=== PATIENT | male | born 1975 | race African-American/Black ===

== ENCOUNTER 2016-10-27 19:57 | Emergency (ER) | payer MEDICARE, MEDICAID ==
[~2016-10-27] VITALS: Ht 182.9 cm; Wt 72.2 kg
[~2016-10-27 19:57] MED LIST: AMLODIPINE BESY10 MG PO; AMOXICILLIN500 MG PO; BAYER ASPIRIN E81 MG PO; BAYER LOW81 MG OR; BENZTROPINE1 MG OR; BENZTROPINE1 MG PO; CIPROFLOXACN500 MG PO; CLONAZEP ODT0.5 MG OR; CLONAZEPAM1 M1 PO; CLONAZEPAM1 MG OR; COGENTIN1 M2 OR; COGENTIN1 MG OR; FEOSOL45 MG OR; FERROUS SULF325 M3 PO; HALDOL1 M1 PO; HALDOL1 MG PO; HALDOL5 M1 PO; HALDOL5 MG OR; HALDOL5 MG PO; HALOPERIDOL2 MG OR; LAMICTAL150 M1 OR; LAMICTAL150 MG OR; LAMICTAL150 MG PO; LAMICTAL200 M1 OR; LAMOTRIGINE150 MG OR; LISINOPRIL20 M1 PO; LISINOPRIL20 MG OR; LISINOPRIL20 MG PO; LORTAB 5 OR; LORTAB 5-325 MG1 TAB PO; MEDDOSEPAK OR; MOTRIN800 MG PO; NAPROSYN500 MG PO; NORVASC10 M1 OR; NORVASC10 MG OR; OMEPRAZOLE20 M2 PO; RISPERDAL0.5 MG PO; SEROQUEL XR150 MG PO; SEROQUEL50 MG OR; ULTRAM50 M1 PO; ZOFRAN4 MG/TAB PO; ZONEGRAN100 M1 PO; ZONISAMIDE100 MG OR
[2016-10-27] MEDS ORDERED: MAGNESIUM OXID400 M1 PO (20:06)
[2016-10-27] MEDS ORDERED: LEVETIRACETAM500 MG PO (20:08)
[2016-10-27] MEDS ORDERED: METOPROL TAR25 MG PO (20:09)
[2016-10-27] MEDS ORDERED: VITAMIN D50000 UNIT PO (20:10)
[2016-10-27 20:53] LABS: HEMATOCRIT 43.6 % (39.0-50.0); IMMATURE GRANULOCYTES 0.3 % (0.0-1.0); MEAN CELL VOLUME 89.9 fL CALC (80.0-100.0); MEAN CORPUSCULAR HGB 28.9 pG CALC (26.0-32.0); MEAN CORPUSCULAR HGB CONC 32.1 g/L CALC (32.0-36.0); NEUT# 5.39 thou/uL (1.82-7.42); RED BLOOD COUNT 4.85 mill/uL (4.70-6.10)
[2016-10-27 21:12] LABS: ALBUMIN 4.7 g/dL (3.2-5.0); ALKALINE PHOSPHATASE 67 u/l (38-126); ANION GAP 21 (6-22 (CALC)); BILIRUBIN, TOTAL 0.4 mg/dL (0.0-1.4); BUN 15 mg/dL (9-20); BUN/CREATININE RATIO 14 (12-20 (CALC)); CALCIUM 9.9 mg/dL (8.4-10.2); CARBON DIOXIDE 23 mmol/l (22-30); CHLORIDE 103 mmol/l (95-108); CREATININE 1.1 mg/dL (0.7-1.3); GFR > 60 ML/MIN (>=60 (CALC)); GFR FOR AFR.AMER. > 60 ML/MIN (>=60 (CALC)); GLUCOSE 116 mg/dL (75-110); POTASSIUM 4.3 mmol/l (3.5-5.1); SGOT/AST 27 u/l (17-59); SGPT/ALT 24 u/l (21-72); SODIUM 142 mmol/l (137-146); TOTAL PROTEIN 8.1 g/dL (6.3-8.2)
[2016-10-27 21:16] LABS: URINE BILIRUBIN - DIPSTICK NEGATIVE (NEGATIVE); URINE BLOOD DIPSTICK NEGATIVE (NEGATIVE); URINE CLARITY CLEAR; URINE COLOR YELLOW; URINE GLUCOSE - DIPSTICK NEGATIVE (NEGATIVE); URINE KETONE NEGATIVE (NEGATIVE); URINE LEUK ESTERASE NEGATIVE (NEGATIVE); URINE NITRITE - DIPSTICK NEGATIVE (Negative); URINE PH 5.5 (4.5-8.0); URINE PROTEIN - DIPSTICK NEGATIVE (NEG-TRACE); URINE UROBILINOGEN - DIPSTICK 0.2 E.U./dL (0.2)
[2016-10-27] MEDS ORDERED: VIMPAT200 MG PO (21:32)
[2016-10-27 21:56] VITALS: BP 136/87
== END 2016-10-27 21:54 | disposition home or self-care (01) ==
LOC: ED 19:57
PROVIDERS: Emergency Medicine
DX: G40.909 Epilepsy, unspecified, not intractable, without status epilepticus (principal); I10 Essential (primary) hypertension; F31.9 Bipolar disorder, unspecified; H91.90 Unspecified hearing loss, unspecified ear

== ENCOUNTER 2016-10-29 16:18 | Emergency (ER) | payer MEDICARE, MEDICAID ==
[~2016-10-29] VITALS: Ht 182.9 cm; Wt 75.0 kg
[~2016-10-29 16:18] MED LIST changes: +LEVETIRACETAM500 MG PO; +MAGNESIUM OXID400 M1 PO; +METOPROL TAR25 MG PO; +VIMPAT200 MG PO; +VITAMIN D50000 UNIT PO
[2016-10-29 16:49] LABS: HEMATOCRIT 44.4 % (39.0-50.0); HEMOGLOBIN 14.6 g/dl (14.0-18.0); IMMATURE GRANULOCYTES 0.3 % (0.0-1.0); MEAN CELL VOLUME 89.3 fL CALC (80.0-100.0); MEAN CORPUSCULAR HGB 29.4 pG CALC (26.0-32.0); MEAN CORPUSCULAR HGB CONC 32.9 g/L CALC (32.0-36.0); NEUT# 6.4 thou/uL (1.82-7.42); RED BLOOD COUNT 4.97 mill/uL (4.70-6.10)
[2016-10-29 17:00] LABS: ALBUMIN 4.6 g/dL (3.2-5.0); ALKALINE PHOSPHATASE 75 u/l (38-126); ANION GAP 18 (6-22 (CALC)); BILIRUBIN, TOTAL 0.7 mg/dL (0.0-1.4); BUN 16 mg/dL (9-20); BUN/CREATININE RATIO 13 (12-20 (CALC)); CALCIUM 9.4 mg/dL (8.4-10.2); CARBON DIOXIDE 23 mmol/l (22-30); CHLORIDE 107 mmol/l (95-108); CREATININE 1.2 mg/dL (0.7-1.3); GFR > 60 ML/MIN (>=60 (CALC)); GFR FOR AFR.AMER. > 60 ML/MIN (>=60 (CALC)); GLUCOSE 110 mg/dL (75-110); MAGNESIUM 2.1 mg/dL (1.6-2.3); POTASSIUM 3.6 mmol/l (3.5-5.1); SGOT/AST 22 u/l (17-59); SGPT/ALT 27 u/l (21-72); SODIUM 145 mmol/l (137-146); TOTAL PROTEIN 8.2 g/dL (6.3-8.2)
[2016-10-29] MEDS ORDERED: DILANTIN100 MG PO (17:36)
[2016-10-29 19:10] VITALS: BP 120/63
== END 2016-10-29 19:25 | disposition home or self-care (01) ==
LOC: ED 16:18
PROVIDERS: Emergency Medicine
DX: G40.909 Epilepsy, unspecified, not intractable, without status epilepticus (principal); F31.9 Bipolar disorder, unspecified; I10 Essential (primary) hypertension; H91.90 Unspecified hearing loss, unspecified ear; S80.211A Abrasion, right knee, initial encounter; X58.XXXA Exposure to other specified factors, initial encounter; Z91.14 Patient's other noncompliance with medication regimen; Z79.899 Other long term (current) drug therapy

== ENCOUNTER 2017-05-09 15:53 | Emergency (ER) | payer MEDICARE, MEDICAID ==
[~2017-05-09] VITALS: Ht 182.9 cm; Wt 90.0 kg
[~2017-05-09 15:53] MED LIST changes: +DILANTIN100 MG PO
[2017-05-09 17:01] LABS: HEMATOCRIT 45.9 % (39.0-50.0); HEMOGLOBIN 14.7 g/dl (14.0-18.0); IMMATURE GRANULOCYTES 0.8 % (0.0-1.0); MEAN CELL VOLUME 87.3 fL CALC (80.0-100.0); MEAN CORPUSCULAR HGB 27.9 pG CALC (26.0-32.0); NEUT# 6.08 thou/uL (1.82-7.42); RED BLOOD COUNT 5.26 mill/uL (4.70-6.10); RED CELL DISTRI WIDTH 14.8 % (11.5-15.5)
[2017-05-09 17:19] LABS: ALBUMIN 4.3 g/dL (3.2-5.0); ALKALINE PHOSPHATASE 77 u/l (38-126); ANION GAP 20 (6-22 (CALC)); BILIRUBIN, TOTAL 0.4 mg/dL (0.0-1.4); BUN 24 mg/dL (9-20); BUN/CREATININE RATIO 20 (12-20 (CALC)); CALCIUM 9.5 mg/dL (8.4-10.2); CARBON DIOXIDE 26 mmol/l (22-30); CHLORIDE 106 mmol/l (95-108); CREATININE 1.2 mg/dL (0.7-1.3); GFR > 60 ML/MIN (>=60 (CALC)); GFR FOR AFR.AMER. > 60 ML/MIN (>=60 (CALC)); GLUCOSE 140 mg/dL (75-110); POTASSIUM 3.1 mmol/l (3.5-5.1); SGOT/AST 21 u/l (17-59); SGPT/ALT 25 u/l (21-72); SODIUM 148 mmol/l (137-146)
[2017-05-09 17:53] VITALS: BP 140/86
== END 2017-05-09 18:00 | disposition home or self-care (01) ==
LOC: ED 15:53
PROVIDERS: Emergency Medicine
DX: G40.909 Epilepsy, unspecified, not intractable, without status epilepticus (principal); E87.6 Hypokalemia; I10 Essential (primary) hypertension

== ENCOUNTER 2017-06-19 15:27 | Emergency (ER) | payer MEDICARE ==
[~2017-06-19] VITALS: Ht 182.9 cm; Wt 83.0 kg
[2017-06-19 16:01] LABS: HEMATOCRIT 33.2 % (39.0-50.0); HEMOGLOBIN 10.5 g/dl (14.0-18.0); IMMATURE GRANULOCYTES 0.5 % (0.0-1.0); MEAN CORPUSCULAR HGB 28.5 pG CALC (26.0-32.0); MEAN CORPUSCULAR HGB CONC 31.6 g/L CALC (32.0-36.0); NEUT# 8.1 thou/uL (1.82-7.42); RED BLOOD COUNT 3.69 mill/uL (4.70-6.10); RED CELL DISTRI WIDTH 15.1 % (11.5-15.5)
[2017-06-19 16:22] LABS: ALBUMIN 3.5 g/dL (3.2-5.0); BILIRUBIN, TOTAL 0.2 mg/dL (0.0-1.4); CALCIUM 9.2 mg/dL (8.4-10.2); CREATININE 1.6 mg/dL (0.7-1.3); POTASSIUM 3.2 mmol/l (3.5-5.1)
[2017-06-19 16:45] VITALS: BP 131/83
== END 2017-06-19 16:55 | disposition home or self-care (01) ==
LOC: ED 15:27
PROVIDERS: Emergency Medicine
DX: G40.909 Epilepsy, unspecified, not intractable, without status epilepticus (principal); I11.9 Hypertensive heart disease without heart failure; F31.9 Bipolar disorder, unspecified; H91.90 Unspecified hearing loss, unspecified ear; E87.6 Hypokalemia

== ENCOUNTER 2017-08-22 03:36 | Inpatient (IN) | payer MEDICARE ==
[2017-08-22] VITALS (7 sets, daily range): BP systolic 126–150; BP diastolic 78–98
[~2017-08-22] VITALS: Ht 182.9 cm; Wt 82.0 kg
--- NOTE | 2017-08-22 03:40 | NUR ---
RECEIVED ATIVAN 4MG BY EMS.
--- NOTE | 2017-08-22 03:40 | NUR ---
RECEIVED VIA EMS, REPORTED SEIZURE AT HOME. REFC
[2017-08-22] MEDS ORDERED: DEPAKOTE500 MG PO (03:47)
[2017-08-22] MEDS ORDERED: SERTRALINE50 MG PO (03:48)
[2017-08-22] MEDS ORDERED: REMERON15 MG PO (03:49)
[2017-08-22] MEDS ORDERED: BENZTROPINE0.5 MG PO ×2 (03:50→11:07)
[2017-08-22] MEDS ORDERED: OMEPRAZOLE10 MG PO (03:50)
[2017-08-22] MEDS ORDERED: DILANTIN100 MG PO (03:51)
--- NOTE | 2017-08-22 04:30 | NUR ---
PT OPENS EYES TO NAME, FOLLOWS COMMANDS. NON VERBAL AT THIS TIME. MAEX4
--- NOTE | 2017-08-22 05:03 | NUR ---
PORT XRAY AT BEDSIDE.
[2017-08-22 05:10] LABS: HEMATOCRIT 35.3 % (39.0-50.0); HEMOGLOBIN 10.6 g/dl (14.0-18.0); IMMATURE GRANULOCYTES 4.9 % (0.0-1.0); MEAN CELL VOLUME 86.1 fL CALC (80.0-100.0); MEAN CORPUSCULAR HGB 25.9 pG CALC (26.0-32.0); NEUT# 15.82 thou/uL (1.82-7.42); RED BLOOD COUNT 4.1 mill/uL (4.70-6.10); RED CELL DISTRI WIDTH 14.1 % (11.5-15.5)
[2017-08-22 05:38] LABS: URINE BILIRUBIN - DIPSTICK NEGATIVE (NEGATIVE); URINE BLOOD DIPSTICK MODERATE (NEGATIVE); URINE COLOR YELLOW; URINE GLUCOSE - DIPSTICK NEGATIVE (NEGATIVE); URINE KETONE NEGATIVE (NEGATIVE); URINE LEUK ESTERASE NEGATIVE (NEGATIVE); URINE NITRITE - DIPSTICK NEGATIVE (Negative); URINE PROTEIN - DIPSTICK 30 mg/dL (NEG-TRACE); URINE SPECIFIC GRAVITY >=1.030; URINE UROBILINOGEN - DIPSTICK 0.2 E.U./dL (0.2)
[2017-08-22 05:40] LABS: URINE CLARITY HAZY
[2017-08-22 05:42] LABS: BARBITURATES NEGATIVE (NEGATIVE); COCAINE NEGATIVE (NEGATIVE); METHADONE NEGATIVE (NEGATIVE); OXCYCODONE NEGATIVE (NEGATIVE); TETRAHYDROCANNABIONOL NEGATIVE (NEGATIVE); TRICYLIC ANTIDEPRESSANTS NEGATIVE (NEGATIVE)
[2017-08-22 05:55] LABS: ALKALINE PHOSPHATASE 94 u/l (38-126); BILIRUBIN, TOTAL 0.2 mg/dL (0.0-1.4); BUN 14 mg/dL (9-20); BUN/CREATININE RATIO 10 (12-20 (CALC)); CARBON DIOXIDE 18 mmol/l (22-30); CHLORIDE 112 mmol/l (95-108); CREATININE 1.4 mg/dL (0.7-1.3); GFR 56 ML/MIN (>=60 (CALC)); GFR FOR AFR.AMER. > 60 ML/MIN (>=60 (CALC)); SGPT/ALT 50 u/l (21-72); SODIUM 150 mmol/l (137-146)
[2017-08-22 06:00] LABS: ALBUMIN 4.3 g/dL (3.2-5.0); ANION GAP 24 (6-22 (CALC)); POTASSIUM 4.2 mmol/l (3.5-5.1); SGOT/AST 57 u/l (17-59); TOTAL PROTEIN 7.5 g/dL (6.3-8.2)
[2017-08-22 06:04] LABS: URINE RBC 0-2 RBC/hpf (0-5); URINE SQUAMOUS EPITHELIAL CELL FEW EPI/hpf (0-FEW); URINE WBC 0-2 WBC/hpf (0-5)
[2017-08-22 06:05] LABS: URINE BACTERIA RARE hpf; URINE FINE GRAN CAST FEW lpf; URINE MUCUS FEW hpf (NONE-FEW)
--- NOTE | 2017-08-22 06:20 | NUR ---
REPORT TO [facility]/SURG.
[2017-08-22 06:25] LABS: INFLUENZA A POSITIVE (NONE DETECT); INFLUENZA B POSITIVE (NONE DETECT)
--- NOTE | 2017-08-22 06:59 | NUR ---
REPORT TO HARMAN SOLIMAN.
--- NOTE | 2017-08-22 07:09 | NUR ---
PT SOMNOLENT, MOTHER AT BEDSIDE, PT ON BEDSIDE MONITORING WITH O2 NC 2 LPM. RESP EVEN AND UNLABORED. ST ON MONIOR. MONITORING BP FOR IMPROVEMENT PRIOR TO ADMIT TO [facility] FLOOR. WILL CONTINUE TO MONITOR.
--- NOTE | 2017-08-22 08:00 | NUR ---
PT SOMNOLENT BU TAWAKENS TO VOICE AND FOLLOWS COMMANDS, WILL CONT TO MONITOR
--- NOTE | 2017-08-22 08:30 | NUR ---
REPORT TO LESLEE SOLIMAN ON FLOOR FOR ADMIT
--- NOTE | 2017-08-22 08:30 | NUR ---
Admission Note Report Given to: LESLEE SOLIMAN Transported by: Wheelchair X Stretcher Transported with: X Nurse Transporter X Patent IV X O2 X Chocolate Molder
--- NOTE | 2017-08-22 08:35 | NUR ---
FROM ER VIA STRETCHER ACCOMPANIED BY HARMAN Pope TRANSFERRED TO BED WITH MAX ASSIST. RESPS FAST AND SHALLOW ON O2 VIA NC, TELE MONITOR IN PLACE. NON VERBAL, EYES OPEN TO PAINFUL STIMULI. #22 LH INFUSING WITHOUT DIFFICULTY, SITE APPEARS HEALTHY. INCONTINENT OF LARGE AMOUNTS OF URINE, LEO CARE PROVIDED. ORIENTED TO ROOM AND CALL SYSTEM. SAFETY PRECAUTIONS REINFORCED. BED ALARM ON FOR SAFETY. BED IN LOWEST POSITION WITH WHEELS LOCKED. CALL LIGHT WITHIN REACH. WILL CONTINUE TO MONITOR.
--- NOTE | 2017-08-22 08:43 | NUR ---
Admission Note Report Given to: LESLEE SOLIMAN Transported by: Wheelchair X Stretcher Transported with: X Nurse Transporter X Patent IV X O2 X Court Bailiff
[2017-08-22 09:46] LABS: CHOLESTEROL HDL RATIO 3.3 (<4.4 (CALC))
[2017-08-22 09:56] LABS: MAGNESIUM 2.7 mg/dL (1.6-2.3)
--- NOTE | 2017-08-22 10:00 | NUR ---
DR MCCLENDON IN WITH PT, NEW ORDERS RECEIVED.
[2017-08-22] MEDS ORDERED: KLONOPIN0.5 MG PO (11:08)
[2017-08-22] MEDS ORDERED: INVEGA SUST156 MG/ML IM (11:11)
--- NOTE | 2017-08-22 16:02 | NUR ---
RESTING IN SEMI FOWLERS WITH EYES CLOSED, AWAKENS WITH VERBAL STIMULI. MOTHER AT BEDSIDE. RESPS EVEN AND UNLABORED ON O2 VIA NC, TELE MONITOR IN PLACE. NO APPARENT DISTRESS NOTED. BED ALARM ON FOR SAFETY. CALL LIGHT WITHIN REACH. WILL CONTINUE TO MONITOR.
[2017-08-22] MEDS ORDERED: BENZTROPINE1 MG PO (18:25)
[2017-08-22] MEDS ORDERED: SEROQUEL100 MG PO (18:27)
[2017-08-22 19:38] LABS: ANION GAP 26 (6-22 (CALC)); BUN 14 mg/dL (9-20); BUN/CREATININE RATIO 10 (12-20 (CALC)); CARBON DIOXIDE 16 mmol/l (22-30); CHLORIDE 112 mmol/l (95-108); CREATININE 1.4 mg/dL (0.7-1.3); GFR 56 ML/MIN (>=60 (CALC)); GFR FOR AFR.AMER. > 60 ML/MIN (>=60 (CALC)); POTASSIUM 4.1 mmol/l (3.5-5.1); SODIUM 150 mmol/l (137-146)
--- NOTE | 2017-08-23 02:30 | NUR ---
PT.OFF THE FLOOR TO RADIOLOGY FOR CT SCAN, PT.TOLERATED MOVING TO STRETCHER WELL, HE MOVED HIMSELF FROM BED TO STRETCHER VERY WEAKLY AND SLOWLY, HE WAS ABLE TO FOLLOW OUR COMMANDS, PT.IS STILL NON-VERBAL, SHAKES HIS HEAD YES AND NO FOR ANSWERS OTHERWISE, NO RESPONSE GIVEN FROM PATIENT. PT.WAS CLEANED OF INCONTINENCE OF URINE PRIOR TO LEAVING FLOOR.
[2017-08-23 04:40] VITALS: BP 153/95
[2017-08-23 05:33] LABS: IMMATURE GRANULOCYTES 0.8 % (0.0-1.0); MEAN CELL VOLUME 83.3 fL CALC (80.0-100.0); MEAN CORPUSCULAR HGB 25.5 pG CALC (26.0-32.0); MEAN CORPUSCULAR HGB CONC 30.6 g/L CALC (32.0-36.0); NEUT# 9.65 thou/uL (1.82-7.42); RED BLOOD COUNT 4.32 mill/uL (4.70-6.10)
--- NOTE | 2017-08-23 05:35 | NUR ---
PT.CLEANED OF INCONTINENT URINE, LEO-CARE PREVIDED AND BEDDING CHANGED ALONG W/GOWN. PT.NON-VERBAL THROUGHOUT, BUT FOLLOWED COMMANDS. NO S/S OF DISTRESS OR PAIN, BED ALARM ON AND CALL LIGHT AT SIDE
[2017-08-23 05:43] LABS: ANION GAP 17 (6-22 (CALC)); BUN 6 mg/dL (9-20); BUN/CREATININE RATIO 7 (12-20 (CALC)); CARBON DIOXIDE 23 mmol/l (22-30); CHLORIDE 107 mmol/l (95-108); CREATININE 0.9 mg/dL (0.7-1.3); GFR > 60 ML/MIN (>=60 (CALC)); GFR FOR AFR.AMER. > 60 ML/MIN (>=60 (CALC)); MAGNESIUM 2.2 mg/dL (1.6-2.3); POTASSIUM 3.7 mmol/l (3.5-5.1); SODIUM 143 mmol/l (137-146)
--- NOTE | 2017-08-23 05:50 | NUR ---
IV ACCESS DISLODGED, NEW IV IS BEING ACCESSED AT THIS TIME BY JANNY MARIE
--- NOTE | 2017-08-23 07:30 | NUR ---
BEDSIDE REPORT RECEIVED FROM JANNY ACUÑA. PT SUPINE IN BED. NONVERBAL. FOLLOWING DIRECTIONS WELL. NO IVS AT THIS TIME. ARIANNE STATES STORES CLERK TRIED MANY ATTEMPTS. JANNY KIRBY IN ED NOTIFIED AND WILL ATTEMPT.
--- NOTE | 2017-08-23 08:18 | NUR ---
JANNY MIKE AT BEDSIDE FOR IVS ATTEMPT.
[2017-08-23 08:49] VITALS: BP 170/108
[2017-08-23 11:59] VITALS: BP 152/106
--- NOTE | 2017-08-23 12:15 | NUR ---
#20 INSERTED IN LEFT FOOT BY JANNY MIKE. ROCEPHIN RESUMED.
[2017-08-23 15:00] VITALS: BP 144/92
--- NOTE | 2017-08-23 16:44 | NUR ---
PT RESTING WITH EYES CLOSED. MOTHER CAME IN TO VISIT. PT DID NOT SPEAK/ RESPOND TO HER QUESTIONING.
--- NOTE | 2017-08-23 19:18 | NUR ---
PT.IS IN HIGH FOWLERS POSITION WATCHING TV W/LIGHTS LOW. I SPOKE TO PT AND ASKED HOW HE WAS FEELING, HE REPLIED W/GARBLED SPEECH "ALRIGHT." I TOLD HIM THAT I WOULD BE HERE ALL NIGHT AND SHOWED HIM THE CALL LIGHT AND TOLD HIM HOW TO CALL IF HE NEEDED ME. I ASKED IF HE NEEDED ANYTHING ELSE RIGHT NOW, HE SHOOK HIS HEAD NO.
[2017-08-23 19:32] VITALS: BP 154/95
--- NOTE | 2017-08-23 20:49 | NUR ---
UPON ENTERING ROOM PT.IS UPRIGHT IN BED W/LIGHTS ON WATCHING BASKETBALL GAME ON TV. PT.MADE EYE CONTACT W/ME, WHEN ASKED IF HE WAS FEELING OK HE SHOOK HIS HEAD YES, I ASKED IF HE WAS HAVING ANY COUGH HE SHOOK HIS HEAD YES, WHEN ASKED NAME HE SPOKE HIS NAME, UPON ASKING FOR HE SPOKE HIS CORRECT . I STARTED SCANNING MEDICATIONS, FIRST ATTEMPTING TO ASSIST PT.IN TAKING HIS VALPROIC ACID, PT.WOULD NOT USE HIS HAND, UPON ASSESSING MEDIA RECONCILIATION SPECIALIST/THEY WERE FOUND TO BE EQUAL.I OFFERED TO HELP PT.WITH THE PILLS, HE PROCEEDED TO CLOSE HIS EYES AND WOULD NOT RESPOND IN ANY WAY. I WAS UNABLE TO GET PT.TO RESOND IN ANY WAY REGARDING MEDICATIONS, HE WOULD NOT TAKE. I LISTENED TO PT.LUNG SOUNDS AND ATTEMPTED TO ASSESS, HE WAS UNCOOPERATIVE AND WOULD NOT RESPOND TO ME IN ANY WAY. LUNG SOUNDS ARE CLEAR. UPON EXITING ROOM, PT.MADE A SOUND, I TURNED AROUND AND PT.WAS LOOKING AT ME AND PROCEEDED TO REACH FOR HIS WATER. HE PROCEEDED TO TAKE HIS PILLS ONE BY ONE W/WATER IN BETWEEN.
--- NOTE | 2017-08-23 21:04 | NUR ---
PT.WAS ABLE TO TAKE ALL MEDICATIONS ORDERED ONE BY ONE, I ASKED IF HE WOULD LIKE SOME PUDDING, HE SHOOK HIS HEAD YES, I ASKED IF HE WOULD LIKE CHOCOLATE, VANILLA, HE RESPONDED SPOKE "VANILLA."
[2017-08-24] VITALS (8 sets, daily range): BP systolic 128–180; BP diastolic 75–102
--- NOTE | 2017-08-24 00:30 | NUR ---
PT.IV FLUSHED FOR MAINTENANCE, V/S ASSESSED, PT.RETURNED TO SLEEP IMMEIDATELY UPON US LEAVING ROOM, LIGHTS ARE OUT, CALL LIGHT AT SIDE AND TV ON. NO S/S OF DISTRESS NOTED.
--- NOTE | 2017-08-24 03:30 | NUR ---
PT.IS UP ON SIDE OF BED WANTING TO GET UP. WE ASSISTED PT.TO RESTROOM, HE FLUSHED THE TOILET BUT REPORTS HAVING A BM, NOT VISUALIZED BY AIDE. PT.SITTING UPRIGHT IN RECLINER WATCHING CARTOONS ON TV. CALL LIGHT PROVIDED AND INSTRUCTED AGAIN HOW TO CALL IF HE WANTS TO AMBULATE OR NEEDS ANYTHING. ALARM PLACED ON PT.
--- NOTE | 2017-08-24 06:01 | NUR ---
ANTIBIOTIC THERAPY ADMINISTERED. PT.UPRIGHT IN RECLINER WATCHING TV, BED ALARM ON PT.
--- NOTE | 2017-08-24 06:45 | NUR ---
I WAS IN ANOTHER ROOM, ALARM SOUNDED, A NURSE AND BANKING SERVICES CLERK ARRIVED TO ROOM TO FIND PT.LEANING FORWARD IN RECLINER AND FALLING FORWARD. THEY REPORTED CATCHING PT.JUST HE WAS LOWERING TO THE FLOOR. IT WAS ALSO REPORTED THAT HIS HEAD DID BUMP THE FLOOR WHEN HE FELL. WE WERE ABLE TO GET HIM UP AND ASSIST HIM TO THE BED TO LAY DOWN. BED ALARM TURNED ON. WHEN ASKED IF HIS HEAD HURTS BAD HE SHOOK HIS HEAD NO, WHEN ASKED DOES HIS HEAD HURT A LITTLE HE SHOOK HIS HEAD YES. PT.WAS GIVEN CALL LIGHT AND REORIENTED TO ITS USAGE AND CALLING FOR HELP BEFORE GETTING UP. WILL BE NOTIFIED.
--- NOTE | 2017-08-24 07:15 | NUR ---
DR. DAVID WAS NOTIFIED OF PT.FALL, A CT OF HEAD WAS ORDERED.
--- NOTE | 2017-08-24 07:39 | NUR ---
BEDSIDE REPORT RECEIVED FROM JANNY ACUÑA. PT SUPINE IN BED. EYES CLOSED. NOT RESPONDING TO QUESTIONING. BED ALARM SET ON BED FOR SAFETY.
--- NOTE | 2017-08-24 09:30 | NUR ---
PT LEFT FLOOR VIA STRETCHER ACCOMPANIED BY ANH ZUNIGA TO CT DEPARTMENT FOR ORDERED CT BRAIN. PT AWAKE, ANSWERING OPEN-ENDED QUESTIONS AT THIS TIME. NODDING/SHAKING HEAD FOR YES/NO QUESTIONS. PT DENIES HEADACHE. REPORTS NAUSEA.
--- NOTE | 2017-08-24 09:45 | NUR ---
PT ARRIVED TO FLOOR VIA STRETCHER, TRANSFERED BACK TO BED BY SCOOTING OVER FROM STRETCHER. PT FOLLOWING COMMANDS. NOT SPEAKING, BUT MAKING EYE CONTACT AND USING HEAD GESTURES FOR COMMUNICATION. BED ALARM SET FOR SAFETY. WILL CONTINUE TO MONITOR.
--- NOTE | 2017-08-24 14:16 | NUR ---
PT SITTING UPRIGHT IN BED. MAKES EYE CONTACT WITH STAFF. ANSWERING QUESTIONS. SPEECH SLOW BUT APPROPRAITE. DENIES PAIN. REPORTING OF CONCERNS ENCOURAGED. BED ALARM SET FOR SAFETY.
--- NOTE | 2017-08-24 17:00 | NUR ---
PT REQUEST TO SIT IN CHAIR AT BEDSIDE. ASSISTED BY LETTER CARRIER TO CHAIR. PT STARTS TO LEAN FORWARD IF ASLEEP. WHEN QUESTIONED, PT CONFIRMS DIZZINESS. VSS. BP 141/91. LETTER CARRIER AT BEDSIDE FOR SAFETY, UNTIL PT SAFELY IN BED.
--- NOTE | 2017-08-24 18:07 | NUR ---
PT SITTING UPRIGHT IN BED. EATING DINNER. ANSWERING QUESTIONS APPROPRIATELY. CALL LIGHT WITHIN REACH. BED ALARM SET FOR SAFETY. FALL PRECAUTIONS REINFORCED. PT STATES "YES MA'AM."
--- NOTE | 2017-08-24 19:48 | NUR ---
[birth year]24- PT. FOUND ON FLOOR ON RIGHT SIDE. HEAD OFF OF FLOOR. STATES HIS HEAD DID NOT HIT FLOOR. STATES HE NEEDED TO URINATE. ASSISTED BACK TO BED BY STAFF. VSS. URINAL PROVIDED, PT REFUSED TO USE. DR. PERES NOTIFIED. NO NEW ORDERS AT THIS TIME. NO INJURY NOTED. PT DENIES PAIN. BED ALARM SET FOR SAFETY. MOTHER ARRIVED AND AT BEDSIDE NOW. 1939- BED ALARM SET OFF. PT UPPER BODY HANGING OFF OF BED. GRIPPING BOTTOM OF BED TO PREVENT MOTHER FROM ASSISTING BACK INTO BED. STAFF ASKED PT TO LET GO OF BED. PT. THEN GRABBED WRITERS LEG. PT ASKED TO LET GO, PT LET GO AND WAS ASSISTED BACK INTO SITTING POSITION IN BED. WHEN PT QUESTIONED TO WHAT HAPPENED, PT'S MOTHER STATES "THATS A SEIZURE." PT MAKING EYE CONTACT WITH PARQUETRY FLOOR LAYER, NO ANSWERING OF QUESTIONS. STARTS TO RAPID, LOUD BREATH WHEN MOTHER TALKS TO PT. EMOTIONAL AND CALMING SUPPORT GIVEN TO PT. BED ALARM SET.
--- NOTE | 2017-08-24 21:00 | NUR ---
PATIENT RESTING IN BED AT THIS TIME-AWAKE ALERT BUT NON-VERBAL AT THIS TIME. MOTHER VISITING IN THE ROOM. PATIENT DOES ANSWER QUESTIONS BY NODDING YES OR NO. PATIENT PROVIDED WITH BEDTIME MEDS-TAKING PO MEDS AND FLUIDS WELL. HEP LOCK TO LEFT ANKLE INTACT AND FLUSHED.APPEARS HEALTHY AT THIS TIME. PATIENT WATCHING TV. BED ALARM IN PLACE FOR PATIENT SAFETY. CALL LIGHT IN REACH. WILL CONT TO MONITOR.
--- NOTE | 2017-08-25 | NUR ---
BED ALARM GOING OF AND STAFF RESPONDED TO ROOM-FOUND PATIENT IN BED INCONT OF URINE. PATIENT CLEANED UP AND COMPLETE LINEN CHANGE DONE. OFFERED URINAL BUT DID NOT USE. BED ALARM IN PLACE. CALL LIGHT IN REACH. WILL CONT TO MONITOR.
--- NOTE | 2017-08-25 02:04 | NUR ---
BED ALARM GOING OFF-RESPONDED TO ROOM AND OFFERED URINAL-VOIDED 300CC OF URINE IN URINAL. TELE FOUND OFF AND REAPPLIED. OFFERED PO FLUIDS BUT DECLINED AT THIS TIME-CONT TO BE NON-VERBAL BUT NODS HIS HEAD YES OR NO. BED ALARM REAPPLIED. CALL LIGHT IN REACH. WILL CONT TO MONITOR.
[2017-08-25 03:40] VITALS: BP 152/101
--- NOTE | 2017-08-25 03:44 | NUR ---
PATIENT BED ALARMS GOING OFF-PATIENT FOUND ATTEMPTING TO GET OOB. ASSISTED BACK TO BED. PATIENT WAS INCONT OF URINE-ASSISTED TO RECLINER AND LEO-CARE WAS DONE WITH SOAP AND H20. COMLETE LINEN CHANGE WAS DONE AND PATIENT ASSISTED BACK TO BED. TELE MONITORING DEVICE IN PLACE. OFFERED PO FLUIDS AND DRANK FULL CAN OF GATORADE. SEIZURE PRECAUTIONS REMAIN IN PLACE WITH SIDERAILS PADDED. BED ALARMS IN PLAE FOR PATIENT SAFETY. CALL LIGHT IN REACH. PATIENT RESPONDS TO QUESTIONS WITH ONE WORD ANSWERS OR BY NODDING HIS HEAD. WILL CONT TO MONITOR.
--- NOTE | 2017-08-25 04:35 | NUR ---
RESTING IN BED AT THIS TIME-BED ALARMS IN PLACE. CALL LIGHT IN REACH. WILL CONT TO MONITOR.
[2017-08-25 05:27] LABS: HEMATOCRIT 34.3 % (39.0-50.0); HEMOGLOBIN 10.6 g/dl (14.0-18.0); IMMATURE GRANULOCYTES 0.6 % (0.0-1.0); MEAN CELL VOLUME 81.7 fL CALC (80.0-100.0); MEAN CORPUSCULAR HGB 25.2 pG CALC (26.0-32.0); MEAN CORPUSCULAR HGB CONC 30.9 g/L CALC (32.0-36.0); NEUT# 6.1 thou/uL (1.82-7.42); RED BLOOD COUNT 4.2 mill/uL (4.70-6.10); RED CELL DISTRI WIDTH 14.1 % (11.5-15.5)
[2017-08-25 05:43] LABS: ALBUMIN 3.8 g/dL (3.2-5.0); ALKALINE PHOSPHATASE 78 u/l (38-126); ANION GAP 19 (6-22 (CALC)); BILIRUBIN, TOTAL 0.2 mg/dL (0.0-1.4); BUN 7 mg/dL (9-20); BUN/CREATININE RATIO 8 (12-20 (CALC)); CARBON DIOXIDE 25 mmol/l (22-30); CHLORIDE 104 mmol/l (95-108); CREATININE 0.8 mg/dL (0.7-1.3); GFR > 60 ML/MIN (>=60 (CALC)); GFR FOR AFR.AMER. > 60 ML/MIN (>=60 (CALC)); MAGNESIUM 1.9 mg/dL (1.6-2.3); POTASSIUM 3.5 mmol/l (3.5-5.1); SGOT/AST 36 u/l (17-59); SGPT/ALT 39 u/l (21-72); SODIUM 145 mmol/l (137-146); TOTAL PROTEIN 6.8 g/dL (6.3-8.2)
--- NOTE | 2017-08-25 07:27 | NUR ---
REPORT RECEIVED FROM JANNY BRICENO. PT SITTING UPRIGHT IN BED. SLEEPING. BED ALARM SET FOR SAFETY.
[2017-08-25 08:35] VITALS: BP 146/89
--- NOTE | 2017-08-25 11:52 | NUR ---
RJ CASAS IN TO SEE PT AT THIS TIME.
[2017-08-25 12:00] VITALS: BP 138/72
[2017-08-25 15:55] VITALS: BP 145/98
--- NOTE | 2017-08-25 17:31 | NUR ---
PT REFUSING DINNER AT THIS TIME. STATES "IM NOT HUNGRY NOW." TRAY SAVED FOR PT.
[2017-08-25 18:52] VITALS: BP 139/92
--- NOTE | 2017-08-25 19:28 | NUR ---
PATIENT RESTING IN BED AT THIS TIME POSITIONED ON HIS SIDE WITH EYES CLOSED. BED ALARMS IN PLACE FOR PATIENT SAFETY AND SIDERAILS PADDED FOR SEIZURES PRECAUTIONS. CALL LIGHT IN REACH. WILL CONT TO MONITOR.
--- NOTE | 2017-08-25 22:29 | NUR ---
PATIENT RESTING IN BED WATCHING TV AT THIS TIME. OFFER PO FLUIDS BUT DECLINED AT THIS TIME. BED ALARMS IN PLACE FOR PATIENT SAFETY. CALL LIGHT IN REACH. WILL CONT TO MONITOR.
[2017-08-25 23:07] VITALS: BP 132/90
--- NOTE | 2017-08-25 23:16 | NUR ---
BED ALARM IS ALARMING AND PATIENT FOUND TRYING TO GET OOB. PATIENT INCONT OF MODERATE AMT OF URINE IN BREIF. LEO-CARE DONE WITH SOAP AND WATER. COMPLETE LINEN CHANGE AND GOWN DONE. PATIENT OFFERED URINAL BUT DECLINED AT THIS TIME. TURNED AND REPOSITIONED IN BED. OFFERED PO FLUIDS BUT DECLINED AT THIS TIME. VS TAKEN AND RECORDED. BED ALARMS IN PLACE FOR PATIENT SAFETY. CALL LIGHT IN REACH. WILL CONT TO MONITOR.
--- NOTE | 2017-08-26 02:43 | NUR ---
APPEARS SLEEPING AT THIS TIME WITH EYES CLOSED. CALL LIGHT IN REACH. BED ALARMS IN PLACE FOR PATIENT SAFETY. CALL LIGHT IN REACH. WILL CONT TO MONITOR.
[2017-08-26 04:12] VITALS: BP 145/92
[2017-08-26 05:07] LABS: HEMATOCRIT 36.4 % (39.0-50.0); HEMOGLOBIN 11.1 g/dl (14.0-18.0); MEAN CELL VOLUME 81.6 fL CALC (80.0-100.0); MEAN CORPUSCULAR HGB 24.9 pG CALC (26.0-32.0); MEAN CORPUSCULAR HGB CONC 30.5 g/L CALC (32.0-36.0); NEUT# 4.99 thou/uL (1.82-7.42); RED BLOOD COUNT 4.46 mill/uL (4.70-6.10); RED CELL DISTRI WIDTH 14.1 % (11.5-15.5)
--- NOTE | 2017-08-26 07:20 | NUR ---
REPORT RECEIVED FROM JANNY BRICENO;PT APPEARS TO BE SLEEPING IN SUPINE POSITION WITH SEIZURE AND DROPLET PRECAUTIONS IN PLACE;NO S/S OF DISTRESS NOTED;RESPIRATIONS EVEN AND UNLABORED ON RA;BED IN THE LOWEST POSITION WITH CALL LIGHT IN REACH;WILL CONTINUE TO MONITOR
[2017-08-26 08:25] VITALS: BP 148/105
--- NOTE | 2017-08-26 08:30 | NUR ---
PT RESTING IN SEMI FOWLERS POSITION;PT RE-POSITIONED INTO BED BY ANH HELTON AND LISSETH;BED BATH PROVIDED;VS OBTAINED AND ASSESSMENT COMPLETED;RESPIRATIONS EVEN AND UNLABORED ON RA;DROPLET PRECAUTIONS IN PLACE FOR INFLUENZA;ABDOMEN SOFT ON PALPATION WITH X4 ACTIVE BOWEL SOUNDS;STRONG PEDAL PULSES;TELE MONITOR IN PLACE;#20G TO LEFT FOOT FLUSHED AND PATENT,SITE APPEARS HEALTHY;SEIZURE PRECAUTIONS IN PLACE;PT VOICES NO COMPLAINTS AT THIS TIME;PO FLUIDS ENCOURAGED;FALL PRECAUTIONS IN PLACE WITH BED ALARM ON FOR SAFETY;CALL LIGHT IN REACH;WILL CONTINUE TO MONITOR
[2017-08-26 11:50] VITALS: BP 145/89
--- NOTE | 2017-08-26 11:50 | NUR ---
PT APPEARS TO BE RESTING IN SEMI FOWLERS POSITION;PT VOICES NO COMPLAINTS OF PAIN OR DISCOMFORTS;RESPIRATIONS EVEN AND UNLABORED ON RA;SEIZURE AND DROPLET PRECAUTIONS IN PLACE;BED ALARM ON FOR SAFETY;WILL CONTINUE TO MONITOR
[2017-08-26] MEDS ORDERED: VANTIN200 M1 PO (16:19)
[2017-08-26] MEDS ORDERED: TAM75CAP PO (16:19)
--- NOTE | 2017-08-26 16:30 | NUR ---
PT RESTING IN SEMI FOWLERS POSITION WITH DROPLET PRECAUTIONS IN PLACE;DENIES ANY PAIN OR DISCOMFORTS AT THIS TIME;IV SITE PATENT;TELE MONITOR IN PLACE;PT ENCOURAGED PO FLUIDS;CALL LIGHT IN REACH;WILL CONTINUE TO MONITOR
[2017-08-26 16:39] VITALS: BP 134/87
--- NOTE | 2017-08-26 17:29 | NUR ---
CALL MADE TO PATIENT MOTHER AT THIS TIME;VOICEMAIL LEFT NOTIFYING OF D/C
--- NOTE | 2017-08-26 18:25 | NUR ---
CALL RECEIVED FROM MOTHER (MAE LOUIS) REGARDING PTS D/C; MOTHER TO BE HERE " SOON POSSIBLE"
--- NOTE | 2017-08-26 19:20 | NUR ---
Discharge instructions given. Patient verbalizes understanding of same. Discharged in stable condition via Wheelchair to Home with mother. All belongings sent with pt.
== END 2017-08-26 19:35 | disposition home or self-care (01) | DRG 100 ==
LOC: ED 03:36 → ED-I 05:30 → ED 06:19 → MS2 06:20
PROVIDERS: Emergency Medicine; Nurse Practitioner Family; ADMIT Internal Medicine; ATTEND Internal Medicine
DX: G40.409 Other generalized epilepsy and epileptic syndromes, not intractable, without status epilepticus (principal); J10.00 Influenza due to other identified influenza virus with unspecified type of pneumonia; N17.9 Acute kidney failure, unspecified; I11.9 Hypertensive heart disease without heart failure; E86.0 Dehydration; E87.0 Hyperosmolality and hypernatremia; F31.9 Bipolar disorder, unspecified; H91.90 Unspecified hearing loss, unspecified ear; M48.061 Spinal stenosis, lumbar region without neurogenic claudication; F79 Unspecified intellectual disabilities; J10.1 Influenza due to other identified influenza virus with other respiratory manifestations; D63.8 Anemia in other chronic diseases classified elsewhere; Z91.14 Patient's other noncompliance with medication regimen
CPT/HCPCS: J1953

== ENCOUNTER 2017-12-22 03:24 | Emergency (ER) | payer MEDICARE ==
[~2017-12-22] VITALS: Ht 182.9 cm; Wt 83.6 kg
[~2017-12-22 03:24] MED LIST changes: +BENZTROPINE0.5 MG PO; +DEPAKOTE500 MG PO; +INVEGA SUST156 MG/ML IM; +KLONOPIN0.5 MG PO; +OMEPRAZOLE10 MG PO; +REMERON15 MG PO; +SEROQUEL100 MG PO; +SERTRALINE50 MG PO; +TAM75CAP PO; +VANTIN200 M1 PO
[2017-12-22] MEDS ORDERED: CLONAZEPAM0.5 MG PO (04:06)
[2017-12-22 04:21] LABS: HEMATOCRIT 41.3 % (39.0-50.0); HEMOGLOBIN 12.1 g/dl (14.0-18.0); IMMATURE GRANULOCYTES 0.3 % (0.0-5.0); MEAN CELL VOLUME 84.1 fL CALC (80.0-100.0); MEAN CORPUSCULAR HGB 24.6 pG CALC (26.0-32.0); MEAN CORPUSCULAR HGB CONC 29.3 g/L CALC (32.0-36.0); NEUT# 3.65 thou/uL (1.82-7.42); RED BLOOD COUNT 4.91 mill/uL (4.70-6.10); RED CELL DISTRI WIDTH 19.9 % (11.5-15.5)
[2017-12-22 04:32] LABS: ALBUMIN 4.2 g/dL (3.2-5.0); ALKALINE PHOSPHATASE 85 u/l (38-126); ANION GAP 15 (6-22 (CALC)); BILIRUBIN, TOTAL 0.3 mg/dL (0.0-1.4); BUN 16 mg/dL (9-20); BUN/CREATININE RATIO 16 (12-20 (CALC)); CARBON DIOXIDE 24 mmol/l (22-30); CHLORIDE 108 mmol/l (95-108); GFR > 60 ML/MIN (>=60 (CALC)); GFR FOR AFR.AMER. > 60 ML/MIN (>=60 (CALC)); POTASSIUM 3.4 mmol/l (3.5-5.1); SGOT/AST 25 u/l (17-59); SGPT/ALT 31 u/l (21-72); SODIUM 143 mmol/l (137-146); TOTAL PROTEIN 7.5 g/dL (6.3-8.2)
[2017-12-22 04:35] LABS: PHENYTOIN (DILANTIN) < 3 ug/mL (10 - 20)
[2017-12-22] MEDS ORDERED: DILANTIN100 MG PO (06:42)
[2017-12-22 07:09] VITALS: BP 136/97
== END 2017-12-22 07:25 | disposition home or self-care (01) ==
LOC: ED 03:24
PROVIDERS: Family Medicine
DX: G40.909 Epilepsy, unspecified, not intractable, without status epilepticus (principal); R56.9 Unspecified convulsions; I10 Essential (primary) hypertension; Z91.14 Patient's other noncompliance with medication regimen